=== PATIENT | male | born 1980 | race Caucasian/White ===

== ENCOUNTER → 2016-04-08 | Outpatient (CLI) | payer BC ==
[2013-10-19 19:35] VITALS: BP 159/97
--- NOTE | 2016-04-04 22:35 | HP ---
ADMIT DATE: 04/11/2016 Pro Curran APRN dictating for Dr. Rodrigo Rodriguez. HISTORY OF PRESENT ILLNESS: The patient is a pleasant 35-year-old man who is having difficulty with low back pain and pain which radiates into his left posterior thigh and leg. He has had 2 previous lumbar surgeries for back and left leg pain. The first was in 2011 and the second in 2013. He said that in 04/2014 he underwent left hip surgery and as he recovered from this and increased his activities, went back to work, he developed very significant pain in his back and left buttock and posterior thigh with radiation to his left posterior lateral leg. He rates his pain as an 8/10. 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 bending and sitting aggravate and exacerbate this pain. Lying flat in bed helps him. He is taking prednisone and Percocet. He had physical therapy, which has been of no benefit to him. He does not notice weakness in his legs. PAST MEDICAL HISTORY: Osteoarthritis, Raynaud's disease, kidney stones, hypertension, trauma. PAST SURGICAL HISTORY: L5-S1 diskectomy in 2011, lumbar surgery L5-S1 in 2013, hip surgery 2014. FAMILY HISTORY: Diabetes, hypertension, cancer, spine problems. SOCIAL HISTORY: He is a current smoker. He is . Occupation: Works in the home. Alcohol: Never. Tobacco use: Current smoker. Caffeine: Moderate use of caffeinated beverages. Illicit drug use. No personal history of illicit drug use or prescription misuse. Exercise: No exercise regimen. ALLERGIES: PENICILLIN AND CECLOR. CURRENT MEDICATIONS: Ibuprofen 800 mg, Percocet, omeprazole, Excedrin migraine, prednisone, Tylenol. REVIEW OF SYSTEMS: A 12-point review of systems was obtained and is noncontributory except for that mentioned above. PHYSICAL EXAMINATION: NEUROSURGERY EXAMINATION: GENERAL APPEARANCE: Alert, pleasant, in no acute distress. HEAD: Normocephalic and atraumatic. SKIN: Warm and dry, well healed lumbar incision. MUSCULOSKELETAL: Lumbar paraspinal muscle bulk is normal, restricted range of motion of lumbar spine, [id number] tenderness of lower lumbar spine with palpation, normal range of motion of the lower extremities bilaterally. EXTREMITIES: No clubbing, cyanosis, or edema. NEUROLOGIC: Alert and oriented x 3, normal recent and remote memory, strength 5/5 in bilateral lower extremities, sensory was intact to light touch in the bilateral lower extremities except for decrease in the lateral left leg and foot, reflexes were present and symmetric in the lower extremities bilaterally except for an absent left ankle jerk, positive straight leg raising on the left, positive crossed straight leg raising on the right, antalgic gait favoring his left leg. IMAGING: I reviewed a lumbar MRI scan. On that study, there are postoperative changes at L5-S1 with central and right-sided recurrent disk herniation in that location as well as a disk herniation in the lateral recess and in the left foramen. ASSESSMENT: Intravertebral disc disorders with radiculopathy, lumbosacral region. PLAN: The patient has recurrent disc herniation at L5-S1 with severe left lumbar radiculopathy. I explained to him lumbar microsurgery for this problem. I felt it would not offer him long-term relief. At this point, I feel he would best be treated with a decompression at the level of the left facet at L5-S1 to decompress the left S1 nerve root as well as transfacet exposure removing the majority of the facet to decompress the L5 root in the foramen and remove the far lateral herniated disk from that location as well as more central disk herniation. Additionally, he will require instrumentation at L5-S1 and posterolateral fusion. I would combine this with an anterior diskectomy and interbody fusion cage and fusion. I explained to him the surgery and the risks involved. I outlined the expected postoperative course. He would like to go ahead. RODRIGO RODRIGUEZ MD DR: JACKIE/micah JOB#: [id number] / [id number] ROBERTO
[~2016-04-08] MED LIST: ACET500T68 PO; CYCL10TA2 PO; GABA600T2 PO; HYDR-2762 PO; IBUP-1060 PO; LANS30CA PO; OMEP20TA PO; ORPH100T PO; OXYC10TA PO; PRED20TA PO
[2016-04-08 15:26] LABS: BASO # 0.1 x10^3/uL (0.0-0.2); BASO % 1 % (0-3); EOS % 1 % (0-3); HEMATOCRIT 43.1 % (39.0-53.0); HEMOGLOBIN 14.5 g/dL (13.0-17.5); LYMPH # 1.7 x10^3/uL (1.0-4.8); LYMPH % 18 % (24-48); MEAN CORPUSCULAR HEMOGLOBIN 32 pg (25-35); MEAN CORPUSCULAR HGB CONC 34 g/dL (31-37); MEAN CORPUSCULAR VOLUME 95 fL (79-100); MONO % 9 % (0-9); NEUT % 72 % (31-73); PLATELET COUNT 240 x10^3/uL (140-400); RED BLOOD COUNT 4.55 x10^6/uL (4.30-5.70); WHITE BLOOD COUNT 9.3 x10^3/uL (4.0-11.0)
[2016-04-08 15:39] LABS: INR 1.1 (0.8-1.1); PROTHROMBIN TIME PATIENT 13.7 SEC (11.7-14.0)
[2016-04-08 15:45] LABS: ALBUMIN 4.2 g/dL (3.4-5.0); ALBUMIN/GLOBULIN RATIO 1.4 (1.0-1.7); CALCIUM 9.2 mg/dL (8.5-10.1); CREATININE 0.9 mg/dL (0.7-1.3); GFR 96.6; POTASSIUM 3.7 mmol/L (3.5-5.1); TOTAL BILIRUBIN 0.5 mg/dL (0.2-1.0); TOTAL PROTEIN 7.3 g/dL (6.4-8.2)
== END | disposition home or self-care (01) ==
LOC: SURGPAT 13:35
PROVIDERS: ATTEND Neurological Surgery
DX: Z01.818 Encounter for other preprocedural examination (principal); I10 Essential (primary) hypertension; M47.897 Other spondylosis, lumbosacral region
CPT/HCPCS: 36415; 80053; 85027; 85610; 85730; 87641

== ENCOUNTER 2016-04-11 08:16 | Inpatient (IN) | payer BC ==
[2016-04-11] VITALS (7 sets, daily range): BP systolic 126–146; BP diastolic 71–98
[~2016-04-11] VITALS: Ht 180.3 cm; Wt 79.4 kg
[2016-04-11] MEDS ORDERED: VANCOMYCIN 1GM IVPB FOR OMNI 250 ML ONE (08:28)
[2016-04-11] MEDS ORDERED: GELATIN SPONGE SIZE 100. ONE (08:41)
[2016-04-11] MEDS ORDERED: THROMBIN 20,000 UNIT SPRAY.SYRN KIT TP ONE (08:41)
[2016-04-11] MEDS ORDERED: KETOROLAC 60 MG/2 ML SYRINGE FOR OR. ONE (08:42)
[2016-04-11] MEDS ORDERED: BUPIVAC MPF-EPI 0.5%-1:200000 30 ML VIAL. ONE (08:42)
[2016-04-11] MEDS: IV RINGERS,LACTATED 1000ML 1,000 ML IV SCH ×2 (09:30→22:50)
--- NOTE | 2016-04-11 10:04 | RAD ---
CT of the lumbar spine without contrast, 04/11/2016: History: Lumbar radiculopathy, herniated disc, brain lab study Noncontrast scans were obtained with multiplanar reconstructions produced. The data was transferred to the operating room to aid in the patient's stereotactically guided surgery. The following findings are delineated: 1. There is disc space narrowing at L5-S1 with a vacuum disc phenomena. There is a moderate-sized posterior disc protrusion with a prominent component just to the right of midline. There is an additional left lateral component which appears to be involving the left lateral recess with left foraminal encroachment. 2. No significant posterior disc bulge or protrusion is evident at L1-2, L2-3 or L3-4. The central spinal canal and neural foramina are well maintained. 3. There is only slight posterior annular bulging at L4-5. The central spinal canal and neural foramina are well maintained.
[2016-04-11] MEDS ORDERED: MIDAZOLAM HCL 2 MG/2 ML VIAL. ONE (10:13)
[2016-04-11] MEDS ORDERED: GLYCOPYRROLATE 1 MG/5 ML VIAL. ONE (10:13)
[2016-04-11] MEDS ORDERED: ROCURONIUM 50 MG/5 ML VIAL. ONE (10:13)
[2016-04-11] MEDS ORDERED: REMIFENTANIL 2 MG VIAL. IV ONE ×2 (10:13→13:29)
[2016-04-11] MEDS ORDERED: PROPOFOL 20 ML IV ONE (10:14)
[2016-04-11] MEDS ORDERED: DEXAMETHASONE SOD PHOS 20 MG/5 ML VIAL. ONE (10:14)
[2016-04-11] MEDS ORDERED: PROPOFOL 50 ML IV ONE ×2 (10:14→14:27)
[2016-04-11] MEDS ORDERED: LIDOCAINE 2% 100 MG/5 ML DISP.SYRIN. ONE (10:14)
[2016-04-11] MEDS ORDERED: PHENYLEPHRINE 10 MG/ML VIAL. ONE (10:14)
[2016-04-11] MEDS ORDERED: ONDANSETRON PF 4 MG/2 ML VIAL. ONE (10:14)
[2016-04-11] MEDS ORDERED: PROPOFOL 100 ML IV ONE (10:21)
[2016-04-11] MEDS ORDERED: KETAMINE HCL 500 MG/10 ML VIAL. ONE (12:01)
[2016-04-11] MEDS: BACITRACIN 50,000 UNIT in IV NORMAL SALINE 1000ML BAG 1,000 ML IRR ONE ×2 (12:07→12:08)
[2016-04-11] MEDS ORDERED: 0.9 % SODIUM CHLORIDE 50 ML VIAL. IJ ONE (13:06)
[2016-04-11] MEDS: POTASSIUM CL 20MEQ D5-0.45NACL 1,000 ML IV SCH (14:02)
[2016-04-11] MEDS ORDERED: OXYCODONE/APAP 5/325 TABLET. PO PRN (14:15)
[2016-04-11] MEDS ORDERED: MAG HYDROX/AL HYDROX/SIMETH 30 ML ORAL.SUSP PO PRN (14:15)
[2016-04-11] MEDS ORDERED: DIPHENHYDRAMINE 50 MG/ML VIAL IV PRN (14:15)
[2016-04-11] MEDS ORDERED: ZOLPIDEM 5 MG TABLET. PO PRN (14:15)
[2016-04-11] MEDS ORDERED: CALCIUM CARBONATE 500 MG TAB.CHEW PO PRN (14:15)
[2016-04-11] MEDS ORDERED: 0.9 % SODIUM CHLORIDE 10 ML DISP.SYRIN. IV PRN (14:15)
[2016-04-11] MEDS ORDERED: ONDANSETRON PF 4 MG/2 ML VIAL. IV PRN ×2 (14:15→17:45)
[2016-04-11] MEDS ORDERED: DIPHENHYDRAMINE HCL 25 MG CAPSULE PO PRN (14:15)
[2016-04-11] MEDS ORDERED: ACETAMINOPHEN 325 MG TABLET. PO PRN (14:15)
[2016-04-11] MEDS ORDERED: MAGNESIUM HYDROXIDE 2,400 MG/30 ML ORAL.SUSP. PO PRN (14:15)
[2016-04-11] MEDS ORDERED: FENTANYL PF 100 MCG/2 ML VIAL. ONE ×3 (15:11→17:29)
[2016-04-11] MEDS ORDERED: DESFLURANE > 120 MINUTES IH ONE (15:15)
[2016-04-11] MEDS ORDERED: PROPOFOL 40 ML IV ONE (15:44)
[2016-04-11] MEDS: PANTOPRAZOLE 40 MG TABLET. PO SCH (16:30)
[2016-04-11] MEDS ORDERED: IV RINGERS,LACTATED 1000ML 1,000 ML IV SCH (17:38)
[2016-04-11] MEDS: FENTANYL PF 100 MCG/2 ML VIAL. IV PRN ×8 (17:44→23:01)
[2016-04-11] MEDS ORDERED: PROCHLORPERAZINE 10 MG/2 ML VIAL. IV PRN (17:45)
[2016-04-11] MEDS ORDERED: LIDOCAINE 1% 1 ML SYRINGE. ID PRN (17:45)
[2016-04-11] MEDS ORDERED: FENTANYL PF 100 MCG/2 ML VIAL. IV PRN ×2 (17:45→18:15)
[2016-04-11] MEDS ORDERED: HYDROMORPHONE 2 MG/ML VIAL. IV PRN (17:45)
[2016-04-11] MEDS: MORPHINE SULFATE 2 MG/ML DISP.SYRIN. IV PRN ×3 (17:55→18:23)
[2016-04-11] MEDS: CYCLOBENZAPRINE 10 MG TABLET. PO PRN (21:08)
[2016-04-11] MEDS: DOCUSATE SODIUM 100 MG CAPSULE PO SCH (21:08)
[2016-04-11] MEDS: OXYCODONE/APAP 5/325 TABLET. PO PRN (21:09)
[2016-04-11] MEDS ORDERED: VANCOMYCIN 1 GM in IV NORMAL SALINE 250ML 250 ML IV ONE (23:00)
[2016-04-12] MEDS: FENTANYL PF 100 MCG/2 ML VIAL. IV PRN ×14 (00:08→23:45)
[2016-04-12] MEDS: OXYCODONE/APAP 5/325 TABLET. PO PRN ×2 (01:12→06:51)
[2016-04-12 03:00] VITALS: BP 136/78
[2016-04-12] MEDS: POTASSIUM CL 20MEQ D5-0.45NACL 1,000 ML IV SCH ×2 (03:22→08:06)
[2016-04-12] MEDS: PANTOPRAZOLE 40 MG TABLET. PO SCH (06:51)
[2016-04-12 07:09] VITALS: BP 123/88
[2016-04-12] MEDS: DOCUSATE SODIUM 100 MG CAPSULE PO SCH ×2 (07:53→21:07)
[2016-04-12] MEDS: CYCLOBENZAPRINE 10 MG TABLET. PO PRN ×3 (07:53→21:07)
[2016-04-12] MEDS: IV RINGERS,LACTATED 1000ML 1,000 ML IV SCH (08:03)
[2016-04-12] MEDS ORDERED: OXYCODONE/APAP 10/325 TABLET. PO PRN (11:15)
[2016-04-12 11:20] VITALS: BP 159/85
--- NOTE | 2016-04-12 11:20 | PDOC ---
PROGRESS NOTES Subjective Subjective POD #1 c/o back/ incisional pain legs feel better Objective Objective Vital Signs Date Time Temp Pulse Resp B/P Pulse Ox O2 Delivery O2 Flow Rate FiO2 04/12/16 11:14 98 Room Air 10.0 04/12/16 11:00 20 04/12/16 07:09 99.5 99 123/88 99.5 Intake and Output 04/12/16 07:00 Intake Total 3650 ml Output Total 850 ml Balance 2800 ml Intake Oral 700 ml IV Total 2950 ml Output Urine Total 700 ml Estimated Blood Loss 150 ml # Voids 2 Physical Exam General: Alert, Cooperative, No acute distress MUSCULOSKELETAL: Other (LEY) Neuro: Normal speech Psych/Mental Status: Mental status NL Skin: Other (dressing dry and intact, flat) Assessment Assessment Problems Medical Problems: (1) Intervertebral disc disorder with radiculopathy of lumbosacral region Status: Acute Plan Plan of Care change oral pain medication encouraged increased activity as tolerated PT Comment Review of Relevant I have reviewed the following items megha (where applicable) has been applied. Medications Current Medications Vancomycin HCl 250 ml @ As Directed STK-MED ONCE .ROUTE Last administered on 11:15; Start 04/11/16 at 08:28; Stop 04/11/16 at 08:29; Status DC Thrombin 20,000 unit STK-MED ONCE TP Last administered on 04/11/16 12:08; Start 04/11/16 at 08:41; Stop 04/11/16 at 08:42; Status DC Gelatin (Gelfoam Size 100) 1 each STK-MED ONCE .ROUTE Last administered on 12:08; Start 04/11/16 at 08:41; Stop 04/11/16 at 08:42; Status DC Bupivacaine HCl/ Epinephrine Bitart (Sensorcain-Mpf Epi 0.5%-1:[id number]) 30 ml STK -MED ONCE .ROUTE Last administered on 04/11/16 12:08; Start 04/11/16 at 08:42 ; Stop 04/11/16 at 08:43; Status DC Ketorolac Tromethamine 60 mg 60 mg STK-MED ONCE .ROUTE Last administered on 12:08; Start 04/11/16 at 08:42; Stop 04/11/16 at 08:43; Status DC Bacitracin 78692 unit/Sodium Chloride 1,000 ml @ 1,000 mls/hr 1X PERIOP ONCE IRR Last administered on 04/11/16t 12:08; Start 04/11/16 at 09:00; Stop at 09:59; Status DC Lactated Ringer's (Iv Lactated Ringers) 1,000 ml @ 75 mls/hr [id number] IV Last administered on 04/11/16t 09:30; Start 04/11/16 at 09:30 Midazolam HCl (Versed) 2 mg STK-MED ONCE .ROUTE ; Start 04/11/16 at 10:13; Stop 04/11/16 at 10:14; Status DC Remifentanil HCl (Ultiva) 2 mg STK-MED ONCE IV ; Start 04/11/16 at 10:13; Stop 04/11/16 at 10:14; Status DC Glycopyrrolate (Robinul) 1 mg STK-MED ONCE .ROUTE ; Start 04/11/16 at 10:13; Stop 04/11/16 at 10:14; Status DC Rocuronium Garvin (Zemuron) 50 mg STK-MED ONCE .ROUTE ; Start 04/11/16 at 10:13 ; Stop 04/11/16 at 10:14; Status DC Lidocaine HCl 100 mg 100 mg STK-MED ONCE .ROUTE ; Start 04/11/16 at 10:14; Stop 04/11/16 at 10:15; Status DC Propofol 20 ml @ As Directed STK-MED ONCE IV ; Start 04/11/16 at 10:14; Stop at 10:15; Status DC Propofol (Diprivan) 50 ml @ As Directed STK-MED ONCE IV ; Start 04/11/16 at 10: 14; Stop 04/11/16 at 10:15; Status DC Dexamethasone Sodium Phosphate (Decadron) 20 mg STK-MED ONCE .ROUTE ; Start at 10:14; Stop 04/11/16 at 10:15; Status DC Ondansetron HCl (Zofran) 4 mg STK-MED ONCE .ROUTE ; Start 04/11/16 at 10:14; Stop 04/11/16 at 10:15; Status DC Phenylephrine HCl 10 mg 10 mg STK-MED ONCE .ROUTE ; Start 04/11/16 at 10:14; Stop 04/11/16 at 10:15; Status DC Propofol (Diprivan) 100 ml @ As Directed STK-MED ONCE IV ; Start 04/11/16 at 10 :21; Stop 04/11/16 at 10:22; Status DC Ketamine HCl 500 mg STK-MED ONCE .ROUTE ; Start 04/11/16 at 12:01; Stop at 12:02; Status DC Sodium Chloride (Sodium Chloride) 50 ml STK-MED ONCE IJ ; Start 04/11/16 at 13: 06; Stop 04/11/16 at 13:07; Status DC Remifentanil HCl (Ultiva) 2 mg STK-MED ONCE IV ; Start 04/11/16 at 13:29; Stop 04/11/16 at 13:30; Status DC Pantoprazole Sodium 40 mg 40 mg DAILYAC PO Last administered on 04/12/16t 06:51 ; Start 04/11/16 at 16:30 Vancomycin HCl/ Sodium Chloride (Iv Sodium Chloride 0.9% 250ml) 250 ml @ 250 mls/hr 1X ONCE IV Last administered on 04/11/16t 23:00; Start 04/11/16 at 23: 00; Stop 04/11/16 at 23:59; Status DC Acetaminophen (Tylenol) 650 mg PRN Q6HRS PRN PO MILD PAIN / TEMP; Start at 14:15 Al Hydroxide/Mg Hydroxide (Mylanta Plus Xs) 30 ml PRN Q3HRS PRN PO HEARTBURN / GAS; Start 04/11/16 at 14:15 Calcium Carbonate/ Glycine (Tums) 500 mg PRN Q3HRS PRN PO INDIGESTION; Start at 14:15 Diphenhydramine HCl (Benadryl) 25 mg PRN Q6HRS PRN PO ITCHING; Start 04/11/16 at 14:15 Diphenhydramine HCl (Benadryl) 25 mg PRN Q6HRS PRN IV ITCHING; Start 04/11/16 at 14:15 Zolpidem Tartrate (Ambien) 5 mg PRN QHS PRN PO INSOMNIA, MAY REPEAT IN 1HR; Start 04/11/16 at 14:15 Sodium Chloride 3 ml 3 ml QSHIFT PRN IV AFTER MEDS AND BLOOD DRAWS; Start 04/11 at 14:15 Potassium Chloride/Dextrose/ Sod Cl (KCl 20 Meq In D5W-1/2 NS) 1,000 ml @ 75 mls/hr [id number] IV Last administered on 04/11/16 14:02; Start 04/11/16 at 14:02 Oxycodone/ Acetaminophen (Percocet 5/325) 1 tab PRN Q4HRS PRN PO MILD PAIN, 1ST CHOICE; Start 04/11/16 at 14:15; Stop 04/12/16 at 11:16; Status DC Oxycodone/ Acetaminophen (Percocet 5/325) 2 tab PRN Q4HRS PRN PO MODERATE PAIN , SEVERE PAIN Last administered on 04/12/16 06:51; Start 04/11/16 at 14:15; Stop 04/12/16 at 11:16; Status DC Cyclobenzaprine HCl (Flexeril) 10 mg PRN TID PRN PO MUSCLE SPASMS Last administered on 04/12/16 07:53; Start 04/11/16 at 14:15 Docusate Sodium (Colace) 100 mg BID PO Last administered on 04/12/16 07:53; Start 04/11/16 at 21:00 Magnesium Hydroxide (Milk Of Magnesia) 2,400 mg PRN Q12HR PRN PO CONSTIPATION; Start 04/11/16 at 14:15 Ondansetron HCl 4 mg 4 mg PRN Q6HRS PRN IV NAUESA, 1ST CHOICE; Start 04/11/16 at 14:15 Propofol (Diprivan) 50 ml @ As Directed STK-MED ONCE IV ; Start 04/11/16 at 14: 27; Stop 04/11/16 at 14:28; Status DC Fentanyl Citrate (Fentanyl 2ml Vial) 100 mcg STK-MED ONCE .ROUTE ; Start at 15:11; Stop 04/11/16 at 15:12; Status DC Desflurane 90 ml 90 ml STK-MED ONCE IH ; Start 04/11/16 at 15:15; Stop 04/11/16 at 15:16; Status DC Propofol (Diprivan) 40 ml @ As Directed STK-MED ONCE IV ; Start 04/11/16 at 15: 44; Stop 04/11/16 at 15:45; Status DC Fentanyl Citrate (Fentanyl 2ml Vial) 100 mcg STK-MED ONCE .ROUTE ; Start at 16:37; Stop 04/11/16 at 16:38; Status DC Fentanyl Citrate (Fentanyl 2ml Vial) 100 mcg STK-MED ONCE .ROUTE ; Start at 17:29; Stop 04/11/16 at 17:30; Status DC Ondansetron HCl (Zofran) 4 mg PRN Q6HRS PRN IV Nausea; Start 04/11/16 at 17:45 ; Stop 04/12/16 at 17:44 Fentanyl Citrate (Fentanyl 2ml Vial) 25 mcg PRN Q5MIN PRN IV MILD PAIN; Start 04/11/16 at 17:45; Stop 04/12/16 at 17:44 Fentanyl Citrate (Fentanyl 2ml Vial) 50 mcg PRN Q5MIN PRN IV MODERATE PAIN Last administered on 04/12/16t 10:25; Start 04/11/16 at 17:45; Stop 04/12/16 at 17:44 Morphine Sulfate 1 mg 1 mg PRN Q10MIN PRN IV SEVERE PAIN Last administered on t 18:23; Start 04/11/16 at 17:45; Stop 04/12/16 at 17:44 Lactated Ringer's (Iv Lactated Ringers) 1,000 ml @ 0 mls/hr Q0M IV ; Start at 17:38; Stop 04/12/16 at 05:37; Status DC Lidocaine HCl 2 ml 1X PRN PRN ID IV START; Start 04/11/16 at 17:45; Stop at 17:44 Hydromorphone HCl (Dilaudid) 0.5 mg PRN Q10MIN PRN IV SEV PAIN,Second choice; Start 04/11/16 at 17:45; Stop 04/12/16 at 17:44 Prochlorperazine Edisylate (Compazine) 5 mg PACU PRN PRN IV NAUSEA; Start 04/11 at 17:45; Stop 04/12/16 at 17:44 Fentanyl Citrate (Fentanyl 2ml Vial) 25 mcg PRN Q1HR PRN IV PAIN; Start at 18:15 Fentanyl Citrate (Fentanyl 2ml Vial) 50 mcg PRN Q1HR PRN IV PAIN Last administered on 04/12/16t 11:14; Start 04/11/16 at 18:15 Oxycodone/ Acetaminophen (Percocet 10/325) 1 tab PRN Q4HRS PRN PO PAIN; Start 04/12/16 at 11:15 Oxycodone/ Acetaminophen (Percocet 10/325) 2 tab PRN Q4HRS PRN PO PAIN; Start 04/12/16 at 11:15 Active Scripts Active Reported Acetaminophen 500 Mg Tablet 500 Mg PO Ibuprofen 800 Mg Tablet 800 Mg PO PRN Q6HRS PRN Hydrocodone-Apap 7.5-325 (Hydrocodone Bit/Acetaminophen) 1 Each Tablet 1 Tab PO PRN Q6HRS PRN Omeprazole 20 Mg Tablet.dr 20 Mg PO DAILY Vitals/I & O Vital Sign - Last 24 Hours 04/11/16 04/11/16 04/11/16 04/11/16 17:26 17:26 17:41 17:44 Temp 98.0 98.0 Pulse 111 104 Resp 16 18 18 B/P 143/72 123/64 Pulse Ox 100 100 100 O2 Delivery Simple Mask Mask Simple Mask Simple Mask O2 Flow Rate 10 10 10 10.0 04/11/16 04/11/16 04/11/16 04/11/16 17:52 17:55 17:56 17:58 Pulse 107 Resp 18 18 18 20 B/P 112/64 Pulse Ox 100 99 98 97 O2 Delivery Simple Mask Room Air Room Air Room Air O2 Flow Rate 10.0 04/11/16 04/11/16 04/11/16 04/11/16 18:03 18:07 18:11 18:11 Temp 99.5 99.5 Pulse 93 Resp 18 18 B/P 112/61 Pulse Ox 97 97 97 O2 Delivery Room Air Room Air Room Air Room Air 04/11/16 04/11/16 04/11/16 04/11/16 18:23 19:00 19:00 19:15 Temp 98.5 98.5 Pulse 87 88 Resp 18 20 22 20 B/P 134/87 146/98 Pulse Ox 97 97 98 98 O2 Delivery Room Air Room Air Room Air Room Air 04/11/16 04/11/16 04/11/16 04/11/16 19:30 19:45 20:00 20:00 Pulse 84 87 88 Resp 20 20 20 B/P 129/71 126/81 126/87 Pulse Ox 94 97 95 O2 Delivery Room Air 04/11/16 04/11/16 04/11/16 04/11/16 20:04 21:00 21:09 22:05 Temp 98.3 98.3 Pulse 99 Resp 18 20 18 20 B/P 135/85 Pulse Ox 96 95 O2 Delivery Room Air Room Air Room Air Room Air 04/11/16 04/11/16 04/12/16 04/12/16 23:01 23:14 00:08 01:12 Pulse 87 Resp 22 20 20 B/P 135/85 Pulse Ox 95 96 96 96 O2 Delivery Room Air Room Air Room Air O2 Flow Rate 10.0 04/12/16 04/12/16 04/12/16 04/12/16 01:13 02:00 03:00 03:23 Temp 99.4 99.4 Pulse 99 Resp 20 20 20 B/P 136/78 Pulse Ox 96 96 95 96 O2 Delivery Room Air Room Air Room Air 04/12/16 04/12/16 04/12/16 04/12/16 06:51 07:09 07:50 08:02 Temp 99.5 99.5 Pulse 99 Resp 22 16 20 B/P 123/88 Pulse Ox 96 98 O2 Delivery Room Air Room Air Room Air Room Air O2 Flow Rate 10.0 04/12/16 04/12/16 04/12/16 04/12/16 08:18 08:30 08:57 09:30 Resp 20 20 Pulse Ox 98 O2 Delivery Room Air Room Air O2 Flow Rate 10.0 04/12/16 04/12/16 04/12/16 10:25 11:00 11:14 Resp 20 20 Pulse Ox 98 O2 Delivery Room Air Room Air Room Air O2 Flow Rate 10.0 Intake and Output 04/11/16 04/11/16 04/12/16 15:00 23:00 07:00 Intake Total 250 ml 2000 ml 1400 ml Output Total 850 ml Balance 250 ml 1150 ml 1400 ml ASYA DEWEY APRN Apr 12, 2016 11:20
[2016-04-12] MEDS: OXYCODONE/APAP 10/325 TABLET. PO PRN ×3 (12:04→21:08)
[2016-04-12 14:42] VITALS: BP 127/76
[2016-04-12 18:37] VITALS: BP 126/78
[2016-04-12 23:00] VITALS: BP 105/59
[2016-04-13] MEDS: OXYCODONE/APAP 10/325 TABLET. PO PRN ×3 (01:14→11:02)
[2016-04-13] MEDS: FENTANYL PF 100 MCG/2 ML VIAL. IV PRN ×4 (01:15→13:45)
[2016-04-13] MEDS: IV RINGERS,LACTATED 1000ML 1,000 ML IV SCH ×2 (01:30→08:55)
[2016-04-13] MEDS: CYCLOBENZAPRINE 10 MG TABLET. PO PRN ×2 (04:17→10:58)
[2016-04-13] MEDS: POTASSIUM CL 20MEQ D5-0.45NACL 1,000 ML IV SCH (04:55)
[2016-04-13] MEDS: PANTOPRAZOLE 40 MG TABLET. PO SCH (06:37)
[2016-04-13 06:44] VITALS: BP 110/83
[2016-04-13] MEDS: DOCUSATE SODIUM 100 MG CAPSULE PO SCH (07:19)
[2016-04-13 11:02] VITALS: BP 128/74
--- NOTE | 2016-04-13 11:12 | DISCH ---
DISCHARGE INSTRUCTIONS Condition on Discharge Condition on Discharge: Stable Activity After Discharge Activity Instructions for Disc: Activity as tolerated, Avoid exertion Bathing Instructions: Shower-keep dressing dry Lifting Instructions after Dis: No heavy lifting, No pulling or pushing, Do not lift >10 pounds Driving Instructions after Dis: No driving for 2 weeks Diet after Discharge Additional Diet Restrictions: resume home diet Wound Incision Care Wound/Incision Care: Ice to area for comfort Other wound/incision instructi: may remove dressing in 48 hours if dry. may shower- no soaking Contacting the after DC Call your doctor for: Concerns you may have Follow-Up Follow up with: Dr. Rodriguez in 2 weeks [phone] DEVIN RODRIGUEZ MD Apr 13, 2016 11:12
[2016-04-13] MEDS ORDERED: DOCU-27 PO (11:19)
[2016-04-13] MEDS ORDERED: OXYC1TAB9 PO (11:19)
[2016-04-13] MEDS ORDERED: CYCL10TA2 PO (11:19)
--- NOTE | 2016-04-15 11:23 | HP ---
ADMIT DATE: 04/11/2016 Pro Curran RN dictating for Dr. Rodrigo Rodriguez. HISTORY OF PRESENT ILLNESS: The patient is a pleasant 35-year-old man who is having difficulty with low back pain and pain which radiates into his left posterior thigh and leg. He has had 2 previous lumbar surgeries for back and left leg pain. The first was in 2011 and the second in 2013. He said that in 04/2014 he underwent left hip surgery and as he recovered from this and increased his activities, went back to work, he developed very significant pain in his back and left buttock and posterior thigh with radiation to his left posterior lateral leg. He rates his pain as an 8/10. 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 bending and sitting aggravate and exacerbate this pain. Lying flat in bed helps him. He is taking prednisone and Percocet. He had physical therapy, which has been of no benefit to him. He does not notice weakness in his legs. PAST MEDICAL HISTORY: Osteoarthritis, Raynaud's disease, kidney stones, hypertension, trauma. PAST SURGICAL HISTORY: L5-S1 discectomy in 2011, lumbar surgery L5-S1 in 2013, hip surgery 2014. FAMILY HISTORY: Diabetes, hypertension, cancer, spine problems. SOCIAL HISTORY: He is a current smoker. He is . Occupation: Works in the home. Alcohol: Never. Tobacco use: Current smoker. Caffeine: Moderate use of caffeinated beverages. Illicit drug use. Exercise: No exercise regimen. ALLERGIES: PENICILLIN AND CECLOR. CURRENT MEDICATIONS: Ibuprofen 800 mg, Percocet., omeprazole, Excedrin migraine, prednisone, Tylenol. REVIEW OF SYSTEMS: A 12-point review of systems was obtained and is noncontributory except for that mentioned above. PHYSICAL EXAMINATION: NEUROSURGERY EXAMINATION: GENERAL APPEARANCE: Alert, pleasant, in no acute distress. HEAD: Normocephalic and atraumatic. SKIN: Warm and dry, well healed lumbar incision. MUSCULOSKELETAL: Lumbar paraspinal muscle bulk is normal, restricted range of motion of lumbar spine, [id number] tenderness of lower lumbar spine with palpation, normal range of motion of the lower extremities bilaterally. EXTREMITIES: No clubbing, cyanosis, or edema. NEUROLOGIC: Alert and oriented x 3, normal recent and remote memory, strength 5/5 in bilateral lower extremities, sensory was intact to light touch in the bilateral lower extremities except for decrease in the lateral left leg and foot, reflexes were present and symmetric in the lower extremities bilaterally except for an absent left ankle jerk, positive straight leg raising on the left, positive crossed straight leg raising on the right, antalgic gait favoring his left leg. IMAGING: I reviewed a lumbar MRI scan. On that study, there are postoperative changes at L5-S1 with central and right-sided recurrent disk herniation in that location as well as a disk herniation in the lateral recess and in the left foramen. ASSESSMENT/PLAN: The patient has recurrent disc herniation at L5-S1 with severe left lumbar radiculopathy. I explained to him lumbar microsurgery for this problem. I felt it would not offer him long-term relief. At this point, I feel he be treated with a decompression at the level of the left facet at L5-S1 to decompress the left S1 nerve root as well as transfacet exposure removing the majority of the facet to decompress the L5 root in the foramen and remove the far lateral herniated disc from that location as well as more central disc herniation. Additionally, he will require instrumentation at L5-S1 and posterolateral fusion. I would combine this with an anterior discectomy and interbody fusion cage and fusion. I explained to him the surgery and the risks involved. I outlined the expected postoperative course. He would like to go ahead. RODRIGO RODRIGUEZ MD DR: JACKIE/micah JOB#: [id number] / [id number] ROBERTO
--- NOTE | 2016-04-15 15:13 | PATHOLOGY ---
PATHOLOGY REPORT * * * * * * * * FINAL DIAGNOSIS: Segments of fibroconnective, adipose, and skeletal muscle tissue, lumbar disc and decompression: - Focal degenerative changes of fibroconnective tissues. COMMENT: There is no evidence of an acute inflammatory process or malignancy. (JPM:; d/t: 04/15/16) REPORT ELECTRONICALLY SIGNED BY: Perez Chavis M.D. DATE/TIME: 04/15/2016 15:13 * * * * * * * * GROSS PATHOLOGY: Received in formalin labeled "Jayesh Otero, lumbar disc and decompression" are multiple segments of kelley, rubbery, and gritty tissue. The specimen measures 6.9 x 6.8 x 1.2 cm in aggregate dimensions. The tissue is submitted representatively in cassette A1. (CAA; 04/12/2016) INITIAL CPT CODE(S): A; 95486 Professional services [place] [address] Technical services performed by [facility] at [address] [place] [address] [address] [address]. SPECIMEN(S) RECEIVED: A.Lumbar disc and decompression CLINICAL HISTORY: Lumbar herniated disc with radiculopathy PATIENT: JAYESH OTERO Z /AGE: 406/25/1980 (Age: 35) PATIENT #: [id number] ALT CASE #: SPECIMEN COLLECTION DATE: 04/11/2016 SPECIMEN RECEIVED DATE: 04/12/2016 [facility] - [address] [place] [address] - PHONE: [phone] * * * END OF REPORT * * *
--- NOTE | 2016-04-17 23:50 | OP ---
DATE OF SURGERY: 04/11/2016 PREOPERATIVE DIAGNOSIS: Recurrent disc herniation, L5-S1 on the left with left lumbar radiculopathy. POSTOPERATIVE DIAGNOSIS: Recurrent disc herniation, L5-S1 on the left with left lumbar radiculopathy. OPERATION PERFORMED: 1. Hemilaminotomy and microdiscectomy, left L5-S1 with removal of recurrent herniated disc. 2. Posterior instrumentation L5-S1 with posterolateral fusion L5-S1. 3. Transforaminal lumbar interbody fusion L5-S1. The operation was done with EMG monitoring, fluoroscopy and microscopic dissection. SURGEON: Rodrigo Rodriguez M.D. CONDUCTOR SYMPHONIC ORCHESTRA: NIHARIKA James, assisted with the surgery. She assisted with the instrumentation and fusion as well as the closure. The operation was done with BrainLAB guidance, bone marrow aspirate, stimulated electrophysiologic monitoring. OPERATIVE INDICATIONS: The patient is a pleasant 35-year-old who has had 2 previous lumbar surgeries for back and left leg pain, the first in 2011 and second in 2013. He then in April 2014 after recovering from hip surgery developed very severe pain in his back, which radiated into his left leg and was found to have a recurrent disc herniation. He failed to improve with physical therapy and time, at this point, is in moderately severe pain requiring narcotic pain medications. I spoke with him about surgery and explained that further reoperation would not be expected to give long lasting benefit in this case. My feeling was that in addition to decompressing the nerve root, he should also undergo an instrumented lumbar fusion. I did speak with him about this in detail and he wished to go ahead. DESCRIPTION OF PROCEDURE: Following general endotracheal anesthesia, the patient was positioned prone on the Tavon table with lumbar regions prepped and draped in standard fashion. FLAVIA hose and AV impulse boots were applied for DVT prophylaxis. A microscope was draped. Fluoroscopy was draped and brought into the field. Monitoring was established. Vancomycin 1 gram was given prior to the surgery. Two paramedian incisions were made over the L5-S1 interspace on the right side. I dissected down through the skin and subcutaneous tissue and placed self retaining retractor. This of course was done after I placed two right-sided iliac crest pins and initialized BrainLAB system. I exposed the pedicles and transverse processes of L5 and S1. I using the BrainLAB and anatomic landmarks cannulated the pedicles of L5 and S1 by drilling this posterior aspect of the pedicle with the drill followed by sounding down with a black ball using the ball tip probe, followed by tap, followed by screw placement. During this time, I did excoriate laterally over the sacrum at S1 and over the transverse process at L5 and I did aspirate 20 mL of bone marrow from the right iliac crest and I used this with allograft bone to pack into the lateral gutter. NuVasive screws were then placed in L5 and S1 and the gayatri was attached, nuts was placed, but the system was not torqued. I then went to the left side in a similar fashion, exposed the facets and pedicles of L5 and S1. I carefully removed scar exposing the previous boundaries of his previous hemilaminotomies. I did bring in the microscope at this point and again drilled into the posterior aspect of the pedicles of L5 and S1 and tapped, but did not yet place screws. I then went back and drilled gently the dura from the underlying bone and enlarged the hemilaminotomy superiorly, inferiorly and laterally. As I worked, I was able to expose the lateral edge of the dura. There was some residual ligamentum flavum which I removed and I went down to the level of the disc. I did exposure the portion of the foramen and removed lateral disc as well as more paramedian disc and then entered into the disc space more medially and performed a very generous discectomy. Following this then, I placed the screws in L5 and S1. I could visualize the S1 root and exposed the L5 root. I tilted the table and made a small incision in the left flank in order to pass a working channel down into the disc space for lateral discectomy; however, the iliac crest was high medial and this was not possible. I therefore abandoned the lateral approach and decided to perform a TLIF on the patient. I tilted the bed back toward me and incised in Kambin's triangle, portion of annulus and again worked and performed a very generous discectomy at this location. I then packed the interbody region after preparing the disc space with allograft and autograft bone. The autograft bone, I obtained from removing the portion of the facet enlarging the hemilaminotomy which was previous surgery. After this, then I packed the TLIF cage and tapped this into position. I released the cage and did place pedicle screws in L5 and S1, placed the gayatri and nuts, but did not yet torque the system. Fluoroscopic images looked quite good. I gently compressed slightly at L5-S1 on the left and torqued the system sequentially and then torqued the right side. I irrigated copiously, at this point, I felt that I had an excellent decompression and a wide discectomy. I again packed allograft bone into the left lateral gutter and also placed some further residual bone into the right lateral gutter, irrigated again copiously. I closed the wounds in layers with absorbable suture and the skin was closed with 4-0 subcuticular stitch. The operation went very well and the patient was taken to recovery room in excellent condition. I was quite pleased with the surgery. RODRIGO RODRIGUEZ MD DR: JACKIE/micah JOB#: [id number] / [id number] ROBERTO
--- NOTE | 2016-04-24 21:27 | DS ---
DATE OF DISCHARGE: 04/13/2016 DISCHARGE DIAGNOSES: Recurrent disc herniation at L5-S1 on the left with left lumbar radiculopathy. OPERATION PERFORMED: 1. Hemilaminotomy and microdiscectomy at left L5-S1 with removal of recurrent herniated disc. 2. Posterior instrumentation at L5-S1 with posterior lateral fusion at L5-S1. 3. Transforaminal lumbar interbody fusion at L5-S1. HISTORY OF PRESENT ILLNESS: The patient is a pleasant 35-year-old who in the past has undergone 2 previous lumbar surgeries for back and left leg pain in 2011 and in 2013. In 04/2014, after recovering from hip surgery, he developed severe pain in his back, which radiated into his left leg and he was found to have recurrent disc herniation. He failed to improve with conservative treatments, and I spoke with him about surgery. My recommendation was decompression as well as instrumented lumbar fusion. I spoke with him about the surgery in detail including the risks and he wished to proceed. HOSPITAL COURSE: He was admitted to the floor postoperatively where he did well. He was up ambulating in the room and in the halls. Physical therapy was initiated and instruction was given to him regarding his activities. His pain is well controlled and he is in good condition to discharge home. DISCHARGE MEDICATIONS: He will resume his medications per the [facility]. DISCHARGE INSTRUCTIONS: He was instructed regarding incision care, activity restrictions and expectations for the next several weeks. He will follow up in our office in 2 weeks. He understands to call with any questions or concerns. DEVIN RODRIGUEZ MD DR: EV/micah JOB#: [id number] / [id number] ROBERTO
== END 2016-04-13 14:14 | disposition home or self-care (01) | DRG 460 ==
LOC: OPSVCIP 08:16 → 4 SOUTHEST 18:45
PROVIDERS: ADMIT Neurological Surgery; ATTEND Neurological Surgery
PROC: 0SB40ZZ Excision of Lumbosacral Disc, Open Approach (ICD-10-PCS; 2016-04-11)
PROC: 4A11X4G Monitoring of Peripheral Nervous Electrical Activity, Intraoperative, External Approach (ICD-10-PCS; 2016-04-11)
PROC: 0SG00AJ Fusion of Lumbar Vertebral Joint with Interbody Fusion Device, Posterior Approach, Anterior Column, Open Approach (ICD-10-PCS; principal; 2016-04-11 10:30)
DX: M51.17 Intervertebral disc disorders with radiculopathy, lumbosacral region (principal); F17.200 Nicotine dependence, unspecified, uncomplicated; I10 Essential (primary) hypertension; I73.00 Raynaud's syndrome without gangrene; Z82.49 Family history of ischemic heart disease and other diseases of the circulatory system; Z83.3 Family history of diabetes mellitus; Z87.442 Personal history of urinary calculi; Z88.0 Allergy status to penicillin; Z88.1 Allergy status to other antibiotic agents; Z91.011 Allergy to milk products
CPT/HCPCS: 36415; 72131; 76000; 86850; 86900; 86901; 88304; C1713; J1100; J1885; J2250; J2270; J2405; J2704; J3010; J3370; J3490; J7030; J7050; J7120; 97110; 97116

== ENCOUNTER → 2016-07-08 | Outpatient (CLI) | payer BC ==
[~2016-07-08] MED LIST changes: +DOCU-27 PO; +OXYC1TAB9 PO
--- NOTE | 2016-07-08 15:49 | RAD ---
Lumbar spine, 3 views, 07/08/2016: History: Postop evaluation Bilateral pedicle screws have been placed at L5 and S1 attached to longitudinally oriented posterior fixation rods. A partially radiopaque disc spacer is present at the L5-S1 level. The other lumbar disc spaces are well-maintained. The vertebral body alignment is appears normal. No acute bony abnormality is detected. IMPRESSION: 1. Spinal fusion with posterior instrumentation at L5-S1. 2. No acute abnormality is detected.
== END | disposition home or self-care (01) ==
LOC: RAD 15:15
PROVIDERS: ATTEND Nurse Practitioner Adult Health
DX: M43.26 Fusion of spine, lumbar region (principal)
CPT/HCPCS: 72100